=== PATIENT | male | born 1990 | race Caucasian/White ===

== ENCOUNTER 2023-03-06 15:23 | Emergency (ER) | payer OTHER, BC ==
[2023-03-06] MEDS ORDERED: Acetaminophen 500 MG TAB ONE (16:07)
[2023-03-06] MEDS ORDERED: Ketorolac Tromethamine 30 MG/ML VIAL ONE (18:37)
== END 2023-03-06 18:30 | disposition home or self-care (01) ==
LOC: ERS 15:23
DX: S02.119A Unspecified fracture of occiput, initial encounter for closed fracture (principal); S06.0X0A Concussion without loss of consciousness, initial encounter; Z87.891 Personal history of nicotine dependence; W01.0XXA Fall on same level from slipping, tripping and stumbling without subsequent striking against object, initial encounter
CPT/HCPCS: 70450; 72125; J1885